=== PATIENT | female | born 2000 | race Caucasian/White ===

== ENCOUNTER 2024-12-12 11:05 | Emergency (ER) | payer MEDICAID, SELFPAY ==
[2024-12-12 11:08] VITALS: BP 115/67; PULSE 63; TEMP 36.6; O2SAT 95; BMI 28.9
--- NOTE | 2024-12-12 11:37 | ED_ITS ---
HPI HPI - General Adult General Chief complaint: Dental/Oral Stated complaint: DENTAL PAIN Time Seen by Provider: 12/12/24 11:11 Source: patient Mode of arrival: walk-in History of Present Illness HPI narrative: Patient presents to ED complaining of dental pain. She said its mostly on the right upper but all of her teeth seem to hurt. She has not been to a dentist in a long time. She feels like her wisdom teeth might be coming and putting pressure on her teeth. No swelling of her face or abscess in her gums that she has felt or noticed. She said this been going on about 6 days. She has been taking Tylenol and Motrin but has not been helping that much. She is here for resources for dental referral and was asking about naproxen that it might work better. She does not want any narcotics. Patient has no allergies to medications. She also reported that she has anxiety and some diarrhea and she was concerned about her diarrhea. No blood in the stool no vomiting no fevers no acute abdominal pain. Related Data Previous Rx's ?Medication ?Instructions ?Recorded amoxicillin 875 mg-potassium 1 tab PO BID 10 days #20 tabs 12/12/24 clavulanate 125 mg tablet naproxen 375 mg tablet 375 mg PO BID PRN pain #20 tabs 12/12/24 Allergies Allergy/AdvReac Type Severity Reaction Status Date / Time iodine Allergy Severe Rash Verified 12/12/24 11:11 Opioid HPI Opioid Management Most Recent Opioid Data: No Data to Display Review of Systems ROS Status of ROS 10 or more systems reviewed and unremark able except as noted in history and below PFSH PFSH Social History Little interest or pleasure in doing things: not at all Feeling down, depressed, or hopeless: not at all Exam Narrative Exam Narrative: Time Seen: [] Vital Signs: [Per nurse's notes.] General: [Alert] Skin: [Warm, dry, no rash.] Head: [Normocephalic, atraumatic.] Neck: [Supple, trachea midline.] Eye: [Pupils are equal, round and reactive to light, extraocular movements are intact, normal conjunctiva.] Ears, nose, mouth and throat: oral mucosa moist. Dental caries, no dental abs cess no trismus no drooling no tongue elevation Cardiovascular: [Regular rate and rhythm, no murmur.] Respiratory: [Lungs are clear to auscultation, respirations are non-labored, breath sounds are equal.] Chest wall: [No tenderness, no deformity.] Gastrointestinal: [Soft, nontender, non distended, normal bowel sounds.] MSK: 5 out of 5 muscle strength x 4 extremities no calf pain or edema Psychiatric: [Cooperative, appropriate mood & affect.] Neurological: [Alert and oriented to person, place, time, and situation, no focal neurological deficit observed.] Constitutional Vital Signs, click to edit/add: Last Vital Signs Temp 97.8 F 12/12/24 11:08 Pulse 63 12/12/24 11:08 Resp 18 12/12/24 11:08 BP 115/67 12/12/24 11:08 Pulse Ox 95 12/12/24 11:08 Course Vital Signs Vital signs: Vital Signs Temperature 97.8 F 12/12/24 11:08 Pulse Rate 63 12/12/24 11:08 Respiratory Rate 18 12/12/24 11:08 Blood Pressure 115/67 12/12/24 11:08 Pulse Oximetry 95 12/12/24 11:08 Temperature 97.8 F 12/12/24 11:08 Pulse Rate 63 12/12/24 11:08 Respiratory Rate 18 12/12/24 11:08 Blood Pressure 115/67 12/12/24 11:08 Pulse Oximetry 95 12/12/24 11:08 Medical Decision Making MDM Narrative Medical decision making narrative: Patient was given information on dental office as well as primary care doctors. She needs to establish follow-up care for her teeth as well as her diarrhea issues. Patient would be sent home on Augmentin for the dental pain. Take naproxen for the pain as well. Return to ED if worsening symptoms or other concerns. Patient is comfortable with care plan for home Differential Diagnosis Differential Diagnosis: Dental pain dental caries dental abscess Discharge Plan Discharge Chief Complaint: Dental/Oral Clinical Impression: Dental caries, Toothache Patient Disposition: Home, Self-Care Time of Disposition Decision: 11:19 Condition: Good Mode of Transportation: Private Vehicle Prescriptions / Home Meds: New amoxicillin-pot clavulanate 875-125 mg tablet 1 tab PO BID 10 Days Qty: 20 0RF naproxen 375 mg tablet 375 mg PO BID PRN (Reason: pain) Qty: 20 0RF Print Language: Serbian Instructions: Toothache (ED) Referrals: MEGAN MESSINA [Primary Care Provider] - 1 week Discharge Date/Time: 12/12/24 11:30
== END 2024-12-12 11:30 | disposition home or self-care (01) ==
PROVIDERS: Emergency Provider Emergency Medicine; PCP Nurse Practitioner
DX: K02.9 Dental caries, unspecified (principal); K08.89 Other specified disorders of teeth and supporting structures; R19.7 Diarrhea, unspecified
CPT/HCPCS: 99283